=== PATIENT | female | born 1995 | race Caucasian/White ===

== ENCOUNTER 2017-12-17 11:04 | Emergency (ER) | payer BC ==
[~2017-12-17] VITALS: Ht 175.3 cm; Wt 65.9 kg
[2017-12-17 11:08] VITALS: TEMP 36.6; Ht 175.3 cm; Wt 65.9 kg
[2017-12-17] MEDS ORDERED: SPR28 PO (11:28)
--- NOTE | 2017-12-17 12:02 | EMERGENCY ROOM VISIT NOTE ---
History Report prepared by Sadia: Pedro Mcfarland Under the Supervision of: Dr. Serge Ferrera D.O. First contact with patient: 11:37 Chief Complaint: OTHER COMPLAINT Stated Complaint: IRREGULAR MENSTURATION History of Present Illness The patient is a 22 year old female who presents to the Emergency Room with complaints of persistent vaginal bleeding this week. The patient denies having any rashes. She denies having any pelvic pain. She had sexual intercourse with her boyfriend last week but recently did not realize that she had a vaginal foreign body in the way of a condom which had fallen off but neither sexual partner realized. The patient complains of a dark red and brownish bloody discharge. She denies having any rash. She denies having any dysuria or frequency. The patient denies having any back pain fevers nausea or vomiting. She called [facility] but was unable to get an appointment today so she came to the emergency department for further evaluation. Source of History: patient Onset: This week Position: other (vaginal) Symptom Intensity: dark brownish bloody discharge Quality: other (bleeding) Timing: other (persistent) Associated Symptoms: No fevers, No nausea, No back pain, No urinary symptoms Review of Systems See HPI for pertinent positives & negatives. A total of 10 systems reviewed and were otherwise negative. Past Medical & Surgical Surgical Problems: (1) H/O wisdom tooth extraction Family History No pertinent family history Social History Smoking Status: Never Smoker Smokeless Tobacco Use: No Alcohol Use: occasionally Drug Use: none Marital Status: single Current/Historical Medications Scheduled Cephalexin Monohydrate (Keflex), 500 MG PO QID Ethinyl Estrad/Norgestimate (Sprintec 28), 1 TAB PO HS Allergies Coded Allergies: No Known Allergies (Unverified , 12/17/17) Physical Exam Vital Signs Date Time Temp Pulse Resp B/P (MAP) Pulse Ox O2 Delivery O2 Flow Rate FiO2 12/17/17 12:53 83 18 125/75 93 Room Air 12/17/17 11:08 36.6 118 18 151/87 99 Room Air Physical Exam GENERAL: Patient is awake alert in no acute distress patient is resting comfortably and showing no signs of anxiety EYES: The conjunctivae are clear. The pupils are round and reactive. EARS, NOSE, MOUTH AND THROAT: The nose is without any evidence of any deformity. Mucous membranes are moist tongue is midline NECK: The neck is nontender and supple. RESPIRATORY: Normal respiratory effort is noted there is no evidence of wheezing rhonchi or rales CARDIOVASCULAR: Regular rate and rhythm noted there no murmurs rubs or gallops normal S1 normal S2 GASTROINTESTINAL: The abdomen is soft. Bowel sounds are present in all quadrants. Abdomen is nontender PELVIS: External exam revealed no signs of rashes or lesions. There is no visible discharge. Speculum exam revealed a normal colored cervix without erythema or injection. There was scant blood noted in the vaginal vault but no active bleeding. There is no cervical motion tenderness. There is no adnexal tenderness or fullness appreciated. MUSCULOSKELETAL/EXTREMITIES: There is no evidence of gross deformity full range of motion is noted in the hips and shoulders SKIN: There is no obvious evidence of any rash. There are no petechiae, pallor or cyanosis noted. NEUROLOGIC: Patient is awake alert and oriented x3. Medical Decision & Procedures Laboratory Results Test 12/17/17 12:05 Urine Color YELLOW Urine Appearance CLEAR (CLEAR) Urine pH 7.5 (4.5-7.5) Urine Specific [place] 1.007 (1.000-1.030) Urine Protein NEG (NEG) Urine Glucose (UA) NEG (NEG) Urine Ketones NEG (NEG) Urine Occult Blood NEG (NEG) Urine Nitrite NEG (NEG) Urine Bilirubin NEG (NEG) Urine Urobilinogen NEG (NEG) Urine Leukocyte Esterase NEG (NEG) Urine Test NEG (NEG) Laboratory results per my review. ED Course 1142: The patient was evaluated in room C5. A complete history and physical examination were performed. 1240: Upon reevaluation, the patient is resting. I discussed the results and treatment plan with her. She verbalized agreement of the treatment plan. She was discharged home. Medical Decision Prior records/ancillary studies reviewed. Triage Nursing notes reviewed. The patient's history was concerning for vaginal bleeding. Differential diagnosis: Etiologies such as ectopic , dysfunction uterine bleeding, bleeding dyscrasia, trauma, infection, as well as others were entertained. The patient is a 22-year-old female who presented to the emergency department for an evaluation of vaginal bleeding. The patient had a vaginal foreign body which was removed prior to arrival but continues to have some spotting. The patient had concerned that she may have an infection. She feels that the foreign body was likely in her vagina for almost a week. The patient's physical exam and pelvic exam did not appear to be consistent with an infection. She had some scant blood noted in the vault but no active bleeding. She also had a normal-appearing cervix. Cultures were obtained. A urine was obtained as well as a urine . The patient was started on Keflex. She was also encouraged to follow-up with [facility] or [facility] for reevaluation but return to the emergency department immediately if symptoms change worsen or the need arises. I do not feel this is consistent with an STD or PID at this time. Medication Reconcilliation Current Medication List: was personally reviewed by me Blood Pressure Screening Patient's blood pressure: Elevated blood pressure Blood pressure disposition: Elevated BP felt to be situational Impression Primary Impression: Vaginal foreign body Scribe Attestation The scribe's documentation has been prepared under my direction and personally reviewed by me in its entirety. I confirm that the note above accurately reflects all work, treatment, procedures, and medical decision making performed by me. Departure Information Dispostion Home / Self-Care Prescriptions Cephalexin Monohydrate (KEFLEX) 500 Mg Cap 500 MG PO QID, #28 CAP Prov: Serge Ferrera, DO 12/17/17 Referrals No Doctor, Assigned (PCP) Patient Instructions ED Foreign Body Vaginal, My [facility] Additional Instructions Continue Motrin and Tylenol as directed for pain. Continue all other medications as prescribed. Return to the emergency department immediately if symptoms change worsen or the need arises. Problem Qualifiers Primary Impression: Vaginal foreign body Encounter type: initial encounter Qualified Codes: T19.2XXA - Foreign body in vulva and vagina, initial encounter
[2017-12-17] MEDS ORDERED: CEPH500C2 PO (12:38)
[2017-12-17 12:53] VITALS: BP 125/75; PULSE 83; O2SAT 93
== END 2017-12-17 13:01 | disposition home or self-care (01) ==
LOC: C.EDB 11:06 → C.EDC 13:01
DX: T19.2XXA Foreign body in vulva and vagina, initial encounter (principal); X58.XXXA Exposure to other specified factors, initial encounter